=== PATIENT | male | born 1935 | race Two or more races ===

== ENCOUNTER 2016-12-27 14:41 | Emergency (ER) | payer MEDICARE ==
[2016-12-27] MEDS ORDERED: 0.9 % SODIUM CHLORIDE 1,000 ML BAG IV ONE (15:12)
[2016-12-27 15:29] LABS: BASO % 0.5 % (0-6); EOS % 6.3 % (0-6); GRAN % 71.1 % (47-80); HEMATOCRIT 41.7 % (42.0-52.0); HEMOGLOBIN 13.4 gm/dl (14.0-18.0); LYMPH % 10.8 % (16-45); MEAN CELL VOLUME 92.5 fl (81-97); MEAN CORPUSCULAR HEMOGLOBIN 29.7 pg (27-33); MEAN CORPUSCULAR HGB CONC 32.1 g/dl (32-36); MEAN PLATELET VOLUME 10.6 fl (7.4-10.4); MONO % 11.3 % (0-9); PLATELET COUNT 140 K/uL (130-400); RED BLOOD COUNT 4.51 M/uL (4.40-5.70); RED CELL DISTRIBUTION WIDTH 13.7 % (11.5-14.5); WHITE BLOOD COUNT W/O DIFF 5.7 K/uL (4.2-12.2)
[2016-12-27 15:45] LABS: CREATINE PHOSPHOKINASE 34 U/L (55-170)
[2016-12-27 15:47] LABS: ALB/GLOB RATIO 1.3 (1.1-1.8); ALBUMIN 4.3 gm/dL (3.5-5.0); ALKALINE PHOSPHATASE 68 U/L (38-126); ALT/SGPT 37 U/L (21-72); ANION GAP 9.2 (7-16); AST/SGOT 26 U/L (17-59); BLOOD UREA NITROGEN 16 mg/dL (9-20); CARBON DIOXIDE 31.8 mmol/L (22-30); CREATININE 0.7 mg/dL (0.66-1.25); EST GLOMERULAR FILTRATION RATE > 60 ml/min; GLUCOSE,RANDOM 138 mg/dL (70-110); TOTAL PROTEIN 7.5 gm/dL (6.3-8.2)
[2016-12-27 16:09] LABS: ERYTHROCYTE SEDIMENTATION RATE 15 mm/hr (0-20)
[2016-12-27 16:21] LABS: CKMB 0.6 ug/L (0-6)
[2016-12-27 16:22] LABS: TROPONIN I < 0.012 ng/mL (0.00-0.034)
[2016-12-27 16:30] LABS: URINE APPEARANCE CLEAR; URINE BILIRUBIN NEGATIVE (NEGATIVE); URINE BLOOD MODERATE (NEGATIVE); URINE COLOR YELLOW; URINE GLUCOSE (UA) NEGATIVE (NEGATIVE); URINE KETONE NEGATIVE (NEGATIVE); URINE LEUKOCYTE ESTERASE TRACE (NEGATIVE); URINE NITRITE POSITIVE (NEGATIVE); URINE PROTEIN NEGATIVE (NEGATIVE); URINE UROBILINOGEN 0.2 E.U./dL (0.20 - 1.00)
[2016-12-27 16:38] LABS: URINE EPITHELIAL CELLS NONE SEEN (FEW)
[2016-12-27 16:39] LABS: URINE BACTERIA 4+
--- NOTE | 2016-12-27 16:49 | Emergency Department Record ---
History of Present Illness - General Chief Complaint: Hypotension Stated Complaint: LOW BP/NOT FEELING WELL Time Seen by Provider: 12/27/16 15:04 Source: Patient, Family Mode of Arrival: Ambulatory Limitations: No limitations - History of Present Illness Initial Comments: pt feels generally weak and has been losing weight Complaint: Lightheadedness Onset/Timin -: Week(s) Timing: Constant Description: Other Improves With: Remaining still Worsens With: Movement, Exertion Associated Symptoms: Confusion, Shortness of breath, Weakness - [place] Coma Scale Eye Response: (4) Open spontaneously Motor Response: (6) Obeys commands Verbal Response: (5) Oriented [place] Total: 15 - Related Data Home Medications Medication Instructions Recorded Confirmed Last Taken Budesonide/Formoterol Fumarate 2 puff INH DAILY 10/23/14 12/27/16 12/27/16 [Symbicort 160-4.5 Mcg Inhaler] Clopidogrel Bisulfate [Clopidogrel] 75 mg PO DAILY 10/23/14 12/27/16 12/27/16 Ezetimibe [Zetia] 10 mg PO DAILY 10/23/14 12/27/16 12/27/16 Sulfasalazine 500 mg PO BID 10/23/14 12/27/16 12/27/16 Prednisolone Acetate 1% Opth [Pred 1 drop OPTH BID 02/01/16 12/27/16 12/27/16 Forte] Tiotropium [place] [Spiriva] 1 cap IH DAILY 02/01/16 12/27/16 12/26/16 Omeprazole 20 mg PO DAILY 12/27/16 12/27/16 12/27/16 Previous Rx's Medication Instructions Recorded Albuterol Sulfate [Ventolin Hfa] 2 puff INH Q6HR PRN #1 inhaler 02/06/16 Aspirin Chewable 81 mg PO DAILY #30 tab.chew 02/06/16 Ciprofloxacin HCl [Cipro] 1 tab PO Q12H #6 tab 12/27/16 Allergies Allergy/AdvReac Type Severity Reaction Status Date / Time Penicillins Allergy PT UNSURE Verified 10/23/14 22:37 OF REACTION atorvastatin calcium AdvReac PT UNSURE Verified 02/01/16 22:13 [From Lipitor] OF REACTION gemfibrozil [From Lopid] AdvReac PT UNSURE Verified 02/01/16 22:13 OF REACTION simvastatin [From Zocor] AdvReac PT UNSURE Verified 02/01/16 22:13 OF REACTION Travel Screening - Travel/Exposure Within Last 30 Days Have you traveled within the last 30 days?: No - Travel/Exposure Within Last Year Have you traveled outside the [place] in the last year?: No - Additonal Travel Details Have you been exposed to anyone with a communicable illness?: No Review of Systems Reviewed: No additional complaints except as noted below Constitutional: Reports: As per HPI. Denies: Chills, Fever, Malaise, Night sweats, Weakness, Weight change Eyes: Reports: As per HPI. Denies: Eye discharge, Eye pain, Photophobia, Vision change ENT: Reports: As per HPI. Denies: Congestion, Dental pain, Ear pain, Epistaxis , Hearing loss, Throat pain Respiratory: Reports: As per HPI. Denies: Cough, Dyspnea, Hemoptysis, Stridor, Wheezes Cardiovascular: Reports: As per HPI. Denies: Arrhythmia, Chest pain, Dyspnea on exertion, Edema, Murmurs, Orthopnea, Palpitations, Paroxysmal nocturnal dyspnea, Rheumatic Fever, Syncope Endocrine: Reports: As per HPI. Denies: Fatigue, Heat or cold intolerance, Polydipsia, Polyuria Gastrointestinal: Reports: As per HPI. Denies: Abdominal pain, Constipation, Diarrhea, Hematemesis, Hematochezia, Melena, Nausea, Vomiting Genitourinary: Reports: As per HPI. Denies: Dysuria, Frequency, Hematuria, Incontinence, Retention, Testicular pain, Testicular mass, Urgency Musculoskeletal: Reports: As per HPI. Denies: Arthralgia, Back pain, Gout, Joint swelling, Myalgia, Neck pain Skin: Reports: As per HPI. Denies: Bruising, Change in color, Change in hair/ nails, Lesions, Pruritus, Rash Neurological: Reports: As per HPI. Denies: Abnormal gait, Confusion, Headache, Numbness, Paresthesias, Seizure, Tingling, Tremors, Vertigo, Weakness Psychiatric: Reports: As per HPI. Denies: Anxiety, Auditory hallucinations, Depression, Homicidal thoughts, Suicidal thoughts, Visual hallucinations Hematological/Lymphatic: Reports: As per HPI. Denies: Anemia, Blood Clots, Easy bleeding, Easy bruising, Swollen glands Past Medical History - SOCIAL HISTORY Smoking Status: Never smoker Alcohol Use: Rare Drug Use: None - RESPIRATORY Hx Respiratory Disorders: Yes Hx COPD: Yes - CARDIOVASCULAR Hx Cardio Disorders: Yes Hx Heart Attack: Yes (1995, 2003) Comment:: Abd aortic aneurysm-4cm; aortic valve and descending aneurysms - NEURO Hx Neuro Disorders: Yes Hx Dementia: Yes - GI Hx GI Disorders: No - Hx Genitourinary Disorders: No Hx Prostate Problems: Yes (hx prostate CA) - ENDOCRINE Hx Endocrine Disorders: Yes Hx Diabetes: Yes - MUSCULOSKELETAL Hx Musculoskeletal Disorders: Yes Hx Arthritis: Yes Comment:: shingles - PSYCH Hx Psych Problems: No - HEMATOLOGY/ONCOLOGY Hx Hematology/Oncology Disorders: Yes Hx Cancer: Yes (Prostate and right lung) Hx Chemotherapy: No Hx Radiation Therapy: No Family Medical History Any Significant Family History?: No Hx Cancer: Brother/Sister Physical Exam - General General Appearance: Alert, Oriented x3, Cooperative, Mild distress - Head Head exam: Normal inspection - Eye Eye exam: Normal appearance, PERRL, EOMI Pupils: Normal accommodation - ENT ENT exam: Normal exam, Mucous membranes moist, Normal external ear exam, Normal orophraynx Ear exam: Normal external inspection. negative: External canal tenderness Nasal Exam: Normal inspection. negative: Discharge, Sinus tenderness Mouth exam: Normal external inspection, Tongue normal Teeth exam: Normal inspection. negative: Dental caries Throat exam: Normal inspection. negative: Tonsillar erythema, Tonsillar exudate - Neck Neck exam: Normal inspection, Full ROM. negative: Tenderness - Respiratory Respiratory exam: Normal lung sounds bilaterally. negative: Respiratory distress - Cardiovascular Cardiovascular Exam: Regular rate, Normal rhythm, Normal heart sounds - GI/Abdominal GI/Abdominal exam: Soft, Normal bowel sounds. negative: Tenderness - Rectal Rectal exam: Deferred - exam: Deferred - Extremities Extremities exam: Normal inspection, Full ROM, Normal capillary refill. negative: Tenderness - Back Back exam: Reports: Normal inspection, Full ROM. Denies: Muscle spasm, Rash noted, Tenderness - Neurological Neurological exam: Alert, Normal gait, Oriented X3, Reflexes normal - Psychiatric Psychiatric exam: Normal affect, Normal mood - Skin Skin exam: Dry, Intact, Normal color, Warm Course Vital Signs 12/27/16 12/27/16 12/27/16 14:44 15:30 16:00 Temperature 98.1 F Pulse Rate 92 H Pulse Rate [ 85 Apical] Pulse Rate [ 85 Pulse Ox Probe] Respiratory 20 20 16 Rate Blood Pressure 94/66 Blood Pressure 97/59 90/66 [Left Arm] Pulse Ox 99 99 99 12/27/16 16:30 Temperature Pulse Rate Pulse Rate [ Apical] Pulse Rate [ Pulse Ox Probe] Respiratory 18 Rate Blood Pressure Blood Pressure 101/71 [Left Arm] Pulse Ox 99 - Reevaluation(s) Reevaluation #1: 12/27/16 17:44 pt feels much better Medical Decision Making - Lab Data Result diagrams: 12/27/16 15:20 12/27/16 15:20 Lab Results 12/27/16 12/27/16 12/27/16 Range/Units 15:20 15:20 15:20 WBC 5.7 (4.2-12.2) K/uL RBC 4.51 (4.40-5.70) M/uL Hgb 13.4 L (14.0-18.0) gm/dl Hct 41.7 L (42.0-52.0) % MCV 92.5 (81-97) fl MCH 29.7 (27-33) pg MCHC 32.1 (32-36) g/dl RDW 13.7 (11.5-14.5) % Plt Count 140 (130-400) K/uL MPV 10.6 H (7.4-10.4) fl Gran % 71.1 (47-80) % Lymphocytes % 10.8 L (16-45) % Monocytes % 11.3 H (0-9) % Eosinophils % 6.3 H (0-6) % Basophils % 0.5 (0-6) % ESR 15 (0-20) mm/hr Sodium 138 (136-145) mmol/L Potassium 4.7 (3.5-5.1) mmol/L Chloride 97 L (98-107) mmol/L Carbon Dioxide 31.8 H (22-30) mmol/L Anion Gap 9.2 (7-16) BUN 16 (9-20) mg/dL Creatinine 0.7 (0.66-1.25) mg/dL Estimated GFR > 60 ml/min Random Glucose 138 H (70-110) mg/dL Calcium 9.3 (8.5-10.1) mg/dL Total Bilirubin 0.80 (0.2-1.3) mg/dL AST 26 (17-59) U/L ALT 37 (21-72) U/L Alkaline Phosphatase 68 (38-126) U/L Creatine Kinase 34 L (55-170) U/L CK-MB (CK-2) 0.6 (0-6) ug/L Troponin I < 0.012 (0.00-0.034) ng/mL Total Protein 7.5 (6.3-8.2) gm/dL Albumin 4.3 (3.5-5.0) gm/dL Globulin 3.2 (1.4-4.8) gm/dL Albumin/Globulin Ratio 1.3 (1.1-1.8) Urine Color Urine Appearance Urine pH (5.0-8.0) Ur Specific [place] (1.002-1.030) Urine Protein (NEGATIVE) Urine Glucose (UA) (NEGATIVE) Urine Ketones (NEGATIVE) Urine Blood (NEGATIVE) Urine Nitrite (NEGATIVE) Urine Bilirubin (NEGATIVE) Urine Urobilinogen (0.20 - 1.00) E.U./dL Ur Leukocyte Esterase (NEGATIVE) Urine RBC (NONE SEEN) Urine WBC (0-2/hpf) Ur Epithelial Cells (FEW) Urine Bacteria 12/27/16 Range/Units 16:20 WBC (4.2-12.2) K/uL RBC (4.40-5.70) M/uL Hgb (14.0-18.0) gm/dl Hct (42.0-52.0) % MCV (81-97) fl MCH (27-33) pg MCHC (32-36) g/dl RDW (11.5-14.5) % Plt Count (130-400) K/uL MPV (7.4-10.4) fl Gran % (47-80) % Lymphocytes % (16-45) % Monocytes % (0-9) % Eosinophils % (0-6) % Basophils % (0-6) % ESR (0-20) mm/hr Sodium (136-145) mmol/L Potassium (3.5-5.1) mmol/L Chloride (98-107) mmol/L Carbon Dioxide (22-30) mmol/L Anion Gap (7-16) BUN (9-20) mg/dL Creatinine (0.66-1.25) mg/dL Estimated GFR ml/min Random Glucose (70-110) mg/dL Calcium (8.5-10.1) mg/dL Total Bilirubin (0.2-1.3) mg/dL AST (17-59) U/L ALT (21-72) U/L Alkaline Phosphatase (38-126) U/L Creatine Kinase (55-170) U/L CK-MB (CK-2) (0-6) ug/L Troponin I (0.00-0.034) ng/mL Total Protein (6.3-8.2) gm/dL Albumin (3.5-5.0) gm/dL Globulin (1.4-4.8) gm/dL Albumin/Globulin Ratio (1.1-1.8) Urine Color Yellow Urine Appearance Clear Urine pH 6.0 (5.0-8.0) Ur Specific [place] 1.015 (1.002-1.030) Urine Protein Negative (NEGATIVE) Urine Glucose (UA) Negative (NEGATIVE) Urine Ketones Negative (NEGATIVE) Urine Blood Moderate (NEGATIVE) Urine Nitrite Positive H (NEGATIVE) Urine Bilirubin Negative (NEGATIVE) Urine Urobilinogen 0.2 (0.20 - 1.00) E.U./dL Ur Leukocyte Esterase Trace H (NEGATIVE) Urine RBC 3 - 6 (NONE SEEN) Urine WBC 3 - 5 (0-2/hpf) Ur Epithelial Cells None seen (FEW) Urine Bacteria 4+ Disposition Disposition: Discharge Clinical Impression: UTI (urinary tract infection) Qualifiers: Urinary tract infection type: acute cystitis Hematuria presence: without hematuria Qualified Code(s): N30.00 - Acute cystitis without hematuria Disposition: Home, Self-Care Condition: (1) Good Instructions: Urinary Tract Infection in Men (ED) Additional Instructions: follow up with family doctor. return sooner if worse. Prescriptions: Ciprofloxacin HCl [Cipro] 1 tab PO Q12H #6 tab Quality - Quality Measures Quality Measures: N/A - Blood Pressure Screening Blood Pressure Classification: Normal BP Reading Systolic Measurement: 94 Diastolic Measurement: 66 Screening for High Blood Pressure: < Normal BP, F/U Not Required > [G8783] Normal BP Follow-up Interventions: No follow-up required
[2016-12-27] MEDS ORDERED: CIPROFLOXACIN HCL 500 MG TABLET PO ONE (17:20)
--- NOTE | 2016-12-30 08:05 | RADIOLOGY REPORT ---
EXAM: CHEST, TWO VIEWS HISTORY: NOT FEELING WELL. TECHNIQUE: Frontal and lateral views of the chest were obtained. Comparison: Prior chest from 03/07/16. FINDINGS: The heart size is grossly stable with atheromatous change and ectasia of the thoracic aorta. Extensive air space opacities throughout the right hemithorax with stable post surgical change and volume loss of the right hemithorax. Osteopenia. No discreet pneumothorax. Reticular changes in the left perihilar region as well. IMPRESSION: 1. VOLUME LOSS AND POST SURGICAL CHANGE OF THE RIGHT HEMITHORAX WITH EXTENSIVE AIR SPACE OPACITIES WITH A PROBABLE UNDERLYING COMPONENT OF FIBROSIS. 2. MINIMAL LEFT PERIHILAR RETICULAR CHANGE MAY RELATE TO MILD INFILTRATE. JOB NUMBER: [id number] [facility]
== END 2016-12-27 18:00 | disposition home or self-care (01) ==
LOC: ER 14:41
DX: N30.00 Acute cystitis without hematuria (principal); R42 Dizziness and giddiness; R06.02 Shortness of breath; R41.0 Disorientation, unspecified; I25.2 Old myocardial infarction
CPT/HCPCS: 71020; 80053; 81001; 82550; 82553; 84443; 84484; 85025; 85651; 96365; 96366; 99284; J7030

== ENCOUNTER 2017-07-05 08:55 | Emergency (ER) | payer MEDICARE ==
[2017-07-05] MEDS ORDERED: IPRATROPIUM/ALBUTEROL (0.5MG/3MG) NEB INH ONE (09:09)
--- NOTE | 2017-07-05 09:11 | Emergency Department Record ---
History of Present Illness - General Chief Complaint: Difficulty Breathing Stated Complaint: OSIEL Time Seen by Provider: 07/05/17 09:06 Source: Patient Mode of Arrival: EMS Limitations: No limitations - History of Present Illness Initial Comments: The patient is here due to mild SOB and a cough with colored sputum for 2 weeks. He denies any Cp, fever, chills, vomiting, diarrhea or HAYNES. The patient is a poor historian due to dementia. MD Complaint: Shortness of breath Onset/Timin -: Week(s) Improves With: Nothing Worsens With: Nothing Known History Of: COPD Associated Symptoms: Cough Treatments Prior to Arrival: Bronchodilator - Related Data Home Oxygen Therapy: No Previous Rx's Medication Instructions Recorded Albuterol Sulfate [Ventolin Hfa] 2 puff INH Q6HR PRN #1 inhaler 02/06/16 Aspirin Chewable 81 mg PO DAILY #30 tab.chew 02/06/16 Doxycycline Monohydrate [Mondoxyne 100 mg PO BID #14 capsule 07/05/17 Nl] Allergies Allergy/AdvReac Type Severity Reaction Status Date / Time Penicillins Allergy PT UNSURE Verified 07/05/17 09:03 OF REACTION atorvastatin calcium AdvReac PT UNSURE Verified 07/05/17 09:03 [From Lipitor] OF REACTION gemfibrozil [From Lopid] AdvReac PT UNSURE Verified 07/05/17 09:03 OF REACTION simvastatin [From Zocor] AdvReac PT UNSURE Verified 07/05/17 09:03 OF REACTION Travel Screening - Travel/Exposure Within Last 30 Days Have you traveled within the last 30 days?: No Review of Systems Constitutional: Reports: Malaise. Denies: Chills, Fever Eyes: Denies: Eye discharge ENT: Reports: Congestion Respiratory: Reports: Cough, Dyspnea. Denies: Hemoptysis, Stridor, Wheezes Cardiovascular: Denies: Chest pain Past Medical History - SOCIAL HISTORY Smoking Status: Never smoker Alcohol Use: None Drug Use: None - RESPIRATORY Hx Respiratory Disorders: Yes Hx COPD: Yes - CARDIOVASCULAR Hx Cardio Disorders: Yes Hx Heart Attack: Yes (1995, 2003) Comment:: Abd aortic aneurysm-4cm; aortic valve and descending aneurysms - NEURO Hx Neuro Disorders: Yes Hx Dementia: Yes - GI Hx GI Disorders: No - Hx Genitourinary Disorders: Yes Hx Prostate Problems: Yes (hx prostate CA) - ENDOCRINE Hx Endocrine Disorders: Yes Hx Diabetes: Yes (boderline) - MUSCULOSKELETAL Hx Musculoskeletal Disorders: Yes Hx Arthritis: Yes - PSYCH Hx Psych Problems: No - HEMATOLOGY/ONCOLOGY Hx Hematology/Oncology Disorders: Yes Hx Cancer: Yes (Prostate and right lung) Hx Chemotherapy: No Hx Radiation Therapy: No Family Medical History Any Significant Family History?: Yes Hx Cancer: Brother/Sister Physical Exam - General General Appearance: Alert, Cooperative, No acute distress - Head Head exam: Atraumatic, Normocephalic, Normal inspection - Eye Eye exam: Normal appearance, PERRL - ENT Throat exam: Normal inspection. negative: Tonsillar erythema, Tonsillar exudate - Neck Neck exam: Normal inspection, Full ROM. negative: Tenderness - Respiratory Respiratory exam: negative: Normal lung sounds bilaterally (There is decreased breath sounds R base.), Respiratory distress - Cardiovascular Cardiovascular Exam: Regular rate, Normal rhythm, Normal heart sounds - GI/Abdominal GI/Abdominal exam: Soft, Normal bowel sounds. negative: Tenderness - Extremities Extremities exam: Normal inspection, Full ROM, Normal capillary refill. negative: Tenderness - Neurological Neurological exam: Alert. negative: Motor sensory deficit Course Vital Signs 07/05/17 08:58 Temperature 98.2 F Pulse Rate 110 H Respiratory 24 Rate Blood Pressure 129/84 Pulse Ox 99 - Reevaluation(s) Reevaluation #1: The patient is doing very well at this time. His RA biox is 98% and he denies any cough, CP, SOB, or OSIEL. I did explain to the patient and friend that his workup is normal and that we will start the patient on an oral Abx and have him F/U with his PCP next week if needed. 07/05/17 09:58 Medical Decision Making - Data Complexity MDM Data: Labs Ordered and/or Reviewed, X-Ray Ordered and/or Reviewed, EKG Ordered and/or Reviewed - Lab Data Result diagrams: 07/05/17 08:45 07/05/17 09:09 - EKG Data -: EKG Interpreted by Me EKG: No Acute Changes, Normal EKG, Unchanged From Previous - Radiology Data Radiology results: Report reviewed (CXR: No acute changes compared to old per Rad.) Disposition Disposition: Discharge Clinical Impression: Upper respiratory infection Qualifiers: URI type: unspecified URI Qualified Code(s): J06.9 - Acute upper respiratory infection, unspecified Disposition: Home, Self-Care Condition: (2) Stable Instructions: Acute Bronchitis (ED) Additional Instructions: Please continue the regular medicines. Please take the Doxycycline as directed and see your PCP if not better in 3 days. Return to the ER for any worsening symptoms. Prescriptions: Doxycycline Monohydrate [Mondoxyne Nl] 100 mg PO BID #14 capsule Forms: Patient Portal Access Time of Disposition: 10:02 Quality - Quality Measures Quality Measures: Upper Respiratory Infection - Blood Pressure Screening View Details: Yes Does Patient Have Any of the Following: No Blood Pressure Classification: Pre-Hypertensive BP Reading Systolic Measurement: 129 Diastolic Measurement: 84 Screening for High Blood Pressure: < Pre-Hypertensive BP, F/U Documented > [ G8950] Pre-Hypertensive Follow-up Interventions: Referral to alternative/primary care provider.
[2017-07-05] MEDS ORDERED: ACETAMINOPHEN 325 MG TAB PO ONE (09:14)
[2017-07-05 09:22] LABS: BASO % 0.7 % (0-6); EOS % 4.4 % (0-6); GRAN % 70.2 % (47-80); HEMATOCRIT 43.2 % (42.0-52.0); HEMOGLOBIN 13.8 gm/dl (14.0-18.0); LYMPH % 10.5 % (16-45); MEAN CELL VOLUME 92.1 fl (81-97); MEAN CORPUSCULAR HEMOGLOBIN 29.4 pg (27-33); MEAN CORPUSCULAR HGB CONC 31.9 g/dl (32-36); MEAN PLATELET VOLUME 10.8 fl (7.4-10.4); MONO % 14.2 % (0-9); PLATELET COUNT 124 K/uL (130-400); RED BLOOD COUNT 4.69 M/uL (4.40-5.70); RED CELL DISTRIBUTION WIDTH 14.1 % (11.5-14.5); WHITE BLOOD COUNT W/O DIFF 7.1 K/uL (4.2-12.2)
[2017-07-05 09:37] LABS: BLOOD UREA NITROGEN 15 mg/dL (8-23)
[2017-07-05 09:38] LABS: CREATININE 0.6 mg/dL (0.7-1.2); EST GLOMERULAR FILTRATION RATE > 60 mL/min
[2017-07-05 09:40] LABS: GLUCOSE,RANDOM 120 mg/dL (74-109)
[2017-07-05 09:43] LABS: CREATINE PHOSPHOKINASE 177 U/L (39-308)
[2017-07-05 09:45] LABS: CKMB 2.9 ng/mL (<6.73)
[2017-07-05] MEDS ORDERED: DOXYCYCLINE HYCLATE 100 MG CAPSULE PO ONE (09:58)
--- NOTE | 2017-07-06 18:28 | RADIOLOGY REPORT ---
EXAM: CHEST 2 VIEWS HISTORY: DIFFICULTY IN BREATHING. TECHNIQUE: Frontal and lateral views of the chest were performed. COMPARISON: 12/27/2016. FINDINGS: Post-op surgical change consistent with previous pneumonectomy. Diffuse interstitial alveolar opacities in the right hemithorax. Elevation of the right hemidiaphragm. Cardiomegaly with aneurysmal dilatation of the thoracic aorta. The left hemithorax is clear. Severe underlying osteopenia. IMPRESSION: 1. VOLUME LOSS RIGHT HEMITHORAX WITH POSTPNEUMONECTOMY SURGICAL CHANGE. PERSISTENT INTERSTITIAL AND ALVEOLAR OPACITIES. NO CHANGE WHEN COMPARED TO THE PRIOR EXAM DATED 12/27/2016. 2. ANEURYSMAL DILATATION OF THE THORACIC AORTA. 3. SEVERE UNDERLYING OSTEOPENIA. JOB NUMBER: [id number] [facility]
== END 2017-07-05 10:56 | disposition home or self-care (01) ==
LOC: ER 08:55
DX: J06.9 Acute upper respiratory infection, unspecified (principal); J44.9 Chronic obstructive pulmonary disease, unspecified; R06.00 Dyspnea, unspecified; I25.2 Old myocardial infarction
CPT/HCPCS: 71046; 80048; 82550; 82553; 84484; 85025; 86140; 93005; 93010; 94640; 99284

== ENCOUNTER 2017-07-07 20:31 | Observation (INO) | payer MEDICARE ==
[2017-07-07] MEDS ORDERED: IPRATROPIUM/ALBUTEROL (0.5MG/3MG) NEB INH ONE (20:42)
[2017-07-07] MEDS ORDERED: 0.9 % SODIUM CHLORIDE 1000ML 1,000 ML IV SCH (20:45)
--- NOTE | 2017-07-07 20:47 | Emergency Department Record ---
History of Present Illness - General Chief Complaint: Shortness of breath Stated Complaint: OSIEL Time Seen by Provider: 07/07/17 20:41 Source: Patient, EMS Mode of Arrival: EMS Limitations: No limitations - History of Present Illness Initial Comments: 81 yo male presents to ED for evaluation for increased OSIEL this evening with productive cough and wheezing symptoms. Patient denies fevers/chills, denies chest pain symptoms. Patient reports previous lobectomy. Patient was seen and evaluated 2 days ago for similar symptoms. MD Complaint: Shortness of breath Onset/Timin -: Days(s) Severity: Moderate Consistency: Constant Improves With: Bronchodilators Worsens With: Exertion Context: Recent URI Associated Symptoms: Cough, Sputum production Treatments Prior to Arrival: Bronchodilator - Related Data Home Oxygen Therapy: No Previous Rx's Medication Instructions Recorded Albuterol Sulfate [Ventolin Hfa] 2 puff INH Q6HR PRN #1 inhaler 02/06/16 Aspirin Chewable 81 mg PO DAILY #30 tab.chew 02/06/16 Doxycycline Monohydrate [Mondoxyne 100 mg PO BID #14 capsule 07/05/17 Nl] Allergies Allergy/AdvReac Type Severity Reaction Status Date / Time Penicillins Allergy PT UNSURE Verified 07/05/17 09:03 OF REACTION atorvastatin calcium AdvReac PT UNSURE Verified 07/05/17 09:03 [From Lipitor] OF REACTION gemfibrozil [From Lopid] AdvReac PT UNSURE Verified 07/05/17 09:03 OF REACTION simvastatin [From Zocor] AdvReac PT UNSURE Verified 07/05/17 09:03 OF REACTION Review of Systems Constitutional: Denies: Chills, Fever, Malaise, Night sweats Eyes: Denies: Eye discharge, Eye pain ENT: Denies: Congestion, Ear pain Respiratory: Reports: Cough, Dyspnea. Denies: Wheezes Cardiovascular: Reports: Dyspnea on exertion. Denies: Chest pain, Edema Endocrine: Denies: Fatigue, Heat or cold intolerance Gastrointestinal: Denies: Abdominal pain, Nausea, Vomiting Genitourinary: Denies: Incontinence, Retention Musculoskeletal: Denies: Arthralgia, Back pain, Gout, Joint swelling Skin: Denies: Bruising, Change in color Neurological: Denies: Abnormal gait, Confusion, Headache, Seizure Psychiatric: Denies: Anxiety Hematological/Lymphatic: Denies: Anemia, Blood Clots Past Medical History - SOCIAL HISTORY Smoking Status: Never smoker Drug Use: None - RESPIRATORY Hx Respiratory Disorders: Yes Hx COPD: Yes - CARDIOVASCULAR Hx Cardio Disorders: Yes Hx Heart Attack: Yes (1995, 2003) Comment:: Abd aortic aneurysm-4cm; aortic valve and descending aneurysms - NEURO Hx Neuro Disorders: Yes Hx Dementia: Yes - GI Hx GI Disorders: No - Hx Genitourinary Disorders: No - ENDOCRINE Hx Diabetes: Yes - MUSCULOSKELETAL Hx Musculoskeletal Disorders: Yes Hx Arthritis: Yes - PSYCH Hx Psych Problems: No - HEMATOLOGY/ONCOLOGY Hx Hematology/Oncology Disorders: Yes Hx Cancer: Yes (Prostate and right lung) Hx Chemotherapy: No Hx Radiation Therapy: No Family Medical History Hx Cancer: Brother/Sister Physical Exam - General General Appearance: Alert, Oriented x3, Cooperative, Moderate distress Limitations: No limitations - Head Head exam: Atraumatic, Normocephalic, Normal inspection Head exam detail: negative: Abrasion, Contusion, Mazariegos's sign, General tenderness, Hematoma, Laceration - Eye Eye exam: Normal appearance. negative: Conjunctival injection, Periorbital swelling, Periorbital tenderness, Scleral icterus - ENT Ear exam: negative: Auricular hematoma, Auricular trauma Nasal Exam: negative: Active bleeding, Discharge, Dried blood, Foreign body Mouth exam: negative: Drooling, Laceration, Muffled voice, Tongue elevation - Neck Neck exam: Normal inspection. negative: Meningismus, Tenderness - Respiratory Respiratory exam: Decreased breath sounds, Rhonchi, Wheezes. negative: Rales, Respiratory distress, Stridor - Cardiovascular Cardiovascular Exam: Regular rate, Normal rhythm, Normal heart sounds - GI/Abdominal GI/Abdominal exam: Soft. negative: Rebound - Rectal Rectal exam: Deferred - exam: Deferred - Extremities Extremities exam: Normal inspection. negative: Calf tenderness, Pedal edema, Tenderness - Back Back exam: Denies: CVA tenderness (R), CVA tenderness (L) - Neurological Neurological exam: Alert, Normal gait, Oriented X3 - Psychiatric Psychiatric exam: Normal affect, Normal mood - Skin Skin exam: Normal color. negative: Abrasion Type of lesion: negative: abrasion Course - Reevaluation(s) Reevaluation #1: 07/07/17 21:07 EKG: Sinus tachycardia 103 Normal axis, normal intervals Nonspecific ST-T wave changes are present Reevaluation #2: 07/07/17 21:26 Labs reviewed and are grossly unremarkable for an acute process. CXR: Chronic fibrosis right upper lung Apical thickening, volume loss right patient was updated on all results, will admit for observation for probable CAP. Patient is in agreement with the plan as discussed. Reevaluation #3: 07/08/17 06:35 Case was discussed with Dr. Lindsey, will accept admission at this time. Medical Decision Making - Lab Data Result diagrams: 07/07/17 20:55 07/07/17 20:55 Disposition Disposition: Admit Clinical Impression: CAP (community acquired pneumonia) Qualifiers: Laterality: right Lung location: unspecified part of lung Qualified Code(s): J18.9 - Pneumonia, unspecified organism Disposition: Home, Self-Care Decision to Admit: Admit from ER Decision to Admit Date: 07/07/17 Decision to Admit Time: 21:31 Condition: (2) Stable Time of Disposition: 21:31 Quality - Quality Measures Quality Measures: N/A - Blood Pressure Screening Does Patient Have Any of the Following: Active Dx of HTN Blood Pressure Classification: Hypertensive Reading Systolic Measurement: 144 Diastolic Measurement: 104 Screening for High Blood Pressure: Patient Exclusion, Hx of HTN [G9744]
[2017-07-07 21:02] LABS: BASO % 0.3 % (0-6); EOS % 2.2 % (0-6); GRAN % 76.3 % (47-80); HEMATOCRIT 43.2 % (42.0-52.0); HEMOGLOBIN 13.7 gm/dl (14.0-18.0); LYMPH % 9.3 % (16-45); MEAN CELL VOLUME 91.7 fl (81-97); MEAN CORPUSCULAR HGB CONC 31.7 g/dl (32-36); MEAN PLATELET VOLUME 10.5 fl (7.4-10.4); MONO % 11.9 % (0-9); PLATELET COUNT 121 K/uL (130-400); RED BLOOD COUNT 4.71 M/uL (4.40-5.70); RED CELL DISTRIBUTION WIDTH 14.2 % (11.5-14.5); WHITE BLOOD COUNT W/O DIFF 5.8 K/uL (4.2-12.2)
[2017-07-07 21:08] LABS: INFLUENZA A NEGATIVE (NEGATIVE); INFLUENZA B NEGATIVE (NEGATIVE)
[2017-07-07 21:18] LABS: ALBUMIN 4.4 g/dL (4.0-5.0); ALKALINE PHOSPHATASE 82 U/L (40-129); ALT/SGPT 20 U/L (<41); AST/SGOT 31 U/L (10.0-50.0); BLOOD UREA NITROGEN 12 mg/dL (8-23); CREATININE 0.6 mg/dL (0.7-1.2); EST GLOMERULAR FILTRATION RATE > 60 mL/min; GLUCOSE,RANDOM 128 mg/dL (74-109)
[2017-07-07 21:19] LABS: ALB/GLOB RATIO 1.3 (1.1-1.8); TOTAL PROTEIN 7.8 g/dL (6.6-8.7)
[2017-07-07] MEDS ORDERED: 0.9 % SODIUM CHLORIDE 1000ML 1,000 ML IV PRN (22:18)
[2017-07-07] MEDS ORDERED: SULFASALAZINE 500 MG PO SCH (22:18)
[2017-07-07] MEDS ORDERED: ALBUTEROL SULFATE (0.083%) 2.5 MG/3 ML NEB INH PRN (22:18)
[2017-07-07] MEDS: IPRATROPIUM/ALBUTEROL (0.5MG/3MG) NEB INH SCH (22:25)
[2017-07-07] MEDS: PREDNISOLONE ACETATE 1% OPTH 10ML BOTTLE OPTH SCH (22:48)
[2017-07-07] MEDS ORDERED: CEFTRIAXONE SODIUM 1 GM in 0.9 % SODIUM CHLORIDE 100ML 100 ML IVPB SCH (23:00)
[2017-07-07] MEDS ORDERED: DOXYCYCLINE HYCLATE 100 MG CAPSULE PO SCH (23:00)
[2017-07-08] MEDS: IPRATROPIUM/ALBUTEROL (0.5MG/3MG) NEB INH SCH ×3 (05:06→14:02)
[2017-07-08] MEDS ORDERED: PANTOPRAZOLE SODIUM 40 MG TABLET PO SCH (07:00)
--- NOTE | 2017-07-08 07:55 | RADIOLOGY REPORT ---
EXAM: CHEST, TWO VIEWS HISTORY: DIFFICULTY BREATHING. TECHNIQUE: Frontal and lateral views of the chest were obtained. Comparison: Prior chest 07/05/17. FINDINGS: The heart size is grossly stable. Atheromatous change and ectasia of the thoracic aorta. Elevation of the right hemidiaphragm with fibrotic changes and interspersed air space opacities throughout the right hemithorax. Volume loss of the right hemithorax with surgical clips in the right hilar region. Right apical pleural thickening, as before. Osteopenia. No discreet pneumothorax. IMPRESSION: LITTLE CHANGE FROM THE PRIOR EXAM. VOLUME LOSS OF THE RIGHT HEMITHORAX WITH POST SURGICAL CHANGES. FIBROTIC CHANGES WITH INTERSPERSED AIR SPACE OPACITIES AND RIGHT APICAL PLEURAL THICKENING, UNCHANGED. JOB NUMBER: [id number] [facility]
[2017-07-08] MEDS ORDERED: FUROSEMIDE IV 40MG/4ML VIAL IVP ONE (08:32)
[2017-07-08] MEDS ORDERED: ALBUTEROL SULFATE (0.083%) 2.5 MG/3 ML NEB INH PRN (08:35)
[2017-07-08] MEDS ORDERED: MAGNESIUM SULFATE 16 MEQ in 0.9 % SODIUM CHLORIDE 100ML 100 ML IV ONE (08:45)
[2017-07-08] MEDS: METHYLPREDNISOLONE PF 125MG/VIAL IVP SCH ×2 (08:49→14:27)
[2017-07-08] MEDS: PREDNISOLONE ACETATE 1% OPTH 10ML BOTTLE OPTH SCH (09:30)
[2017-07-08] MEDS ORDERED: BUDESONIDE 0.5 MG/2 ML INH SCH (10:00)
[2017-07-08] MEDS ORDERED: EZETIMIBE 10 MG TABLET PO SCH (10:00)
[2017-07-08] MEDS ORDERED: CLOPIDOGREL 75MG TABLET PO SCH (10:00)
[2017-07-08] MEDS ORDERED: AZITHROMYCIN 500 MG TABLET PO SCH (10:00)
[2017-07-08] MEDS ORDERED: METHYLPREDNISOLONE PF 125MG/VIAL IVP SCH (10:00)
[2017-07-08] MEDS ORDERED: ASPIRIN 81 MG CHEWABLE TABLET PO SCH (10:00)
[2017-07-08] MEDS ORDERED: CEFTRIAXONE SODIUM 1 GM in 0.9 % SODIUM CHLORIDE 100ML 100 ML IVPB SCH (10:00)
[2017-07-08] MEDS ORDERED: UMECLIDINIUM BROMIDE (INCRUSE) 62.5MCG IH SCH (10:00)
[2017-07-08] MEDS ORDERED: LORAZEPAM 2 MG/ML VIAL IV PRN ×2 (10:17→12:38)
[2017-07-08] MEDS ORDERED: ENOXAPARIN 40 MG/0.4 ML SYR SQ SCH (11:15)
--- NOTE | 2017-07-08 11:35 | Inpatient Certification ---
Inpatient Certification Admit to inpatient care: Based on my medical assessment, after consideration of patient's risk factors (age, co-morbidities and patient presenting symptoms and acuity), I expect that this patient will remain in the hospital greater than or equal to two midnights and that the services needed warrant inpatient care because:of respiratory distress and failure Patient Risk Factors: [] Estimated length of stay: [3 days] The patient may reasonably be expected to be discharged or transferred to a hospital within 96 hours after admission to [facility]. Services needed: [IV antibiotics and respiratory support] Post hospital care (if known): [] I certify that my determination is in accordance with my understanding of Medicare requirements for reasonable and necessary inpatient services. 07/08/17 11:34
--- NOTE | 2017-07-08 14:55 | History and Physical Report ---
DATE: 07/08/2017 CHIEF COMPLAINT: Dyspnea. HISTORY OF PRESENT ILLNESS: This 81-year-old male presented to the emergency department with cough, congestion, and difficulty breathing worse over the last 3-4 days. He was seen in the emergency department, treated as before, and started on doxycycline but he continued to get worse, yellow productive sputum and short of breath. He was seen in the emergency department by Dr. Durant and admitted to the hospital for further care. The patient has wet respirations, rhonchi. PAST MEDICAL HISTORY: Coronary artery disease, diabetes mellitus type 2 controlled with diet only. He has lost a fair amount of weight. COPD, GERD, history of right lung cancer with removal of 2 lobes of the lung, history of prostate cancer, hypercholesterolemia, irritable bowel syndrome with some diarrhea, rheumatoid arthritis, negative rheumatoid factor. He has a thoracic aortic aneurysm that he refused to have surgery on. He said he will take the consequences of whatever happens. 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 PAST SURGICAL HISTORY: Coronary stents x2, prostatectomy, lobectomy with two lobes of the right lung were removed (the middle and lower lobes), corneal transplants bilaterally. He has a thoracic aortic aneurysm more than 4 cm and he refused to have surgery. MEDICATIONS: 1. Albuterol inhaler 2 puffs q.4 h. p.r.n. 2. Symbicort 160/4.5 b.i.d. 3. Plavix 75 mg a day. 4. Zetia 10 mg a day. 5. Sulfasalazine 500 mg 1 t.i.d. 6. Spiriva 1 inhalation per day. 7. He also may use some prednisolone drops for his eyes but that is directed by Ophthalmology and I am not sure if he is currently on them at this time. ALLERGIES: PENICILLIN causes a rash. ATORVASTATIN nausea. GEMFIBROZIL nausea. METFORMIN nausea. SIMVASTATIN nausea. FAMILY/PSYCHOSOCIAL HISTORY: Brother and sister have cancer. He has never smoked. No drug or alcohol use. The patient is a retired energy manager. REVIEW OF SYSTEMS: HEENT: See Chief Complaint. He has congestion and cough, sore throat. Cardiovascular: No chest pain, palpitations, or arrhythmia. Respiratory: He has wet respiratory sounds, rhonchi in all lung dupont. Gastrointestinal: No nausea, vomiting, diarrhea, black stools, or bloody stools. Genitourinary: No dysuria, hematuria, frequency, or burning on urination. Musculoskeletal: No pedal edema. Moving all 4 extremities. Neurological: No CVA, paralysis, or paresthesias. Endocrine: He has diet-controlled diabetes mellitus. No hypothyroidism. Integument: No rash, ulcers, change in moles, or yellow skin. PHYSICAL EXAMINATION: VITALS: Height 5 feet 5 inches, weight 120 pounds. Temperature 97.5, pulse 100, blood pressure 142/77, respiratory rate 36-40 and labored, 95% pulse ox on 2L. HEENT: Pupils are equal, round, and reactive to light and accommodation. Extraocular muscles are intact. Throat is clear. Nose is clear. Tympanic membranes are shannon. NECK: Supple. No jugular venous distention. No hepatojugular reflux. No carotid bruits. CARDIOVASCULAR: Regular rate and rhythm without murmurs, clicks, rubs, or gallops. RESPIRATORY: Rhonchi in all lung dupont. Work of breathing is high. ABDOMEN: Soft, nontender. No hepatosplenomegaly, no masses, no tenderness. Bowel sounds are active. No bruits. EXTREMITIES: No pitting edema. No cyanosis, no clubbing. Full range of motion. Peripheral pulses are good. BREASTS: Normal male breasts. GENITALIA: Deferred. NEUROLOGIC: Cranial nerves II-XII intact. No gross defects. Sensation normal, strength normal. Deep tendon reflexes equal bilaterally with Babinski negative. MENTAL STATUS: Alert and oriented x3. IMPRESSION: 1. Acute bronchitis. 2. Acute exacerbation of chronic obstructive pulmonary disease. 3. Right lung cancer. 4. Impending respiratory failure. PLAN: Lasix 40 mg IV. Albuterol nebulizer now. IV magnesium 2 g. BiPAP ventilation. Transfer to [facility]. Will discuss the case with Dr. Blum on D service. [facility]ITAL[facility]
[2017-07-08 15:57] LABS: ARTERIAL BLD GAS O2 SATURATION 96.7 % (95-98); ARTERIAL BLOOD GAS BASE EXCESS 1.3 mmol/L (-2 - 3); ARTERIAL BLOOD GAS HCO3 28.2 mmol/L (18-23); ARTERIAL BLOOD GAS pH 7.32 (7.35-7.45); CARBOXYHEMOGLOBIN 1.2 % (0-1.5); METHEMOGLOBIN 0.6 % (0.0-1.5); O2 HEMOGLOBIN 95.1 % vol (94-99); TOTAL HEMOGLOBIN 13.5 g/dl (14-18)
[2017-07-08 15:58] LABS: ALLEN TEST PASS
--- NOTE | 2017-07-09 12:30 | Discharge Summary ---
DATE: 07/08/2017 DISCHARGE DIAGNOSES: 1. Respiratory failure. 2. Chronic obstructive pulmonary disease. 3. Pneumonia. 4. History of right lung cancer. 5. History of thoracic aortic aneurysm. Patient opted not to have surgery and he is a do not resuscitate patient. ATTENDING PHYSICIAN: Michele Lindsey DO REASON FOR HOSPITALIZATION: This 81-year-old male came to the emergency department with increasing shortness of breath. Seen twice in the ER in the last 3 days and progressively getting worse. In the first ER visit he was placed on doxycycline twice a day. Yellow productive sputum. He came into the emergency department by ambulance and seen by Dr. Durant on the second admission and admitted to the hospital for further care. The patient had wet respiratory rhonchi and was maintaining his pulse ox on 2L; however, his work of breathing was 40 breaths a minute to 45 breaths a minute. SIGNIFICANT FINDINGS: Chest x-ray similar to the previous chest x-ray, which looks horrible. He has had a right middle lobe and lower lobe removal with a lot of scarring in the right upper lobe. This has been consistent over the last year or two. The left lobe having no significant changes per radiologist but it is very difficult to read any infiltrate in the right lung because of his underlying scar tissue on his lungs showing sinus tachycardia. No acute ST-T-wave changes. WBC 5800, hemoglobin 13.7, segs 75, lymphs 9. Potassium 4.7, sodium 137, BUN 12, creatinine 0.6, glucose 128. Negative flu A and B. He had a PCR sent out for the flu also. That is pending. He had a blood gas done prior to transport to [facility]. He was on nasal cannula of 3L. The blood gas showed a pH of 7.3, pO2 85, pCO2 57, and he came off the BiPAP for eating and he wanted to stay off it and on nasal cannula and was maintaining reasonably well just prior to discharge by ambulance to [facility]. THERAPY PROVIDED: The patient was given IV Rocephin, Solu-Medrol, DuoNeb treatments and albuterol treatments, and magnesium 2 g IV. Placed on BiPAP and he rested with some Ativan, enough so that prior to discharge he wanted to eat and he was doing reasonably well on 3L nasal cannula. Because of his impending respiratory failure and work of breathing, it was decided to transfer him to [facility] where Pulmonary could get involved if necessary with a bronchoscopy and further evaluation. Discussed the case with Poli Jerez at [facility] and she accepted the admission. Also did discuss the case with his power of network operations project manager who is Sawyer Mast who happens to be a former cartridge loading operator and now a warehouse foreman. He wants him a do not resuscitate; however, if he needs a short-term ventilation with BiPAP or intubation, he was okay with that. If it turns out to be long-term ventilation, then they will make the decision to turn off the ventilator because the patient does not want to be on a long-term ventilator but at this point he is a do not resuscitate. The patient was transferred to [facility] for further treatment. CONDITION ON DISCHARGE: Guarded with his comorbid condition, his COPD, and his history of lung cancer. REGINALDO
== END 2017-07-08 16:25 | disposition short-term general hospital (02) ==
LOC: ER 20:31 → MEDSURG 21:56
PROVIDERS: ADMIT Emergency Medicine; ATTEND Emergency Medicine
DX: J18.9 Pneumonia, unspecified organism (principal); J44.9 Chronic obstructive pulmonary disease, unspecified; E11.9 Type 2 diabetes mellitus without complications; J96.90 Respiratory failure, unspecified, unspecified whether with hypoxia or hypercapnia; Z85.118 Personal history of other malignant neoplasm of bronchus and lung; D47.3 Essential (hemorrhagic) thrombocythemia; Z85.46 Personal history of malignant neoplasm of prostate; F01.50 Vascular dementia, unspecified severity, without behavioral disturbance, psychotic disturbance, mood disturbance, and anxiety
CPT/HCPCS: 99285 ×2; 83735; 85025; 82375; 80053; 82803; 87400; 71046; 94640 ×3; 36600; 94761; 94660; 94760; 93005; 93010; G0378 ×2; J3490; 99220; J1650; J1940; J2930; J7030; J7613